=== PATIENT | female | born 1960 | race Caucasian/White ===

== ENCOUNTER → 2020-09-15 | Outpatient (CLI) | payer BC | LOC: MC.RAD 09:23 | DX: Z12.31 Encounter for screening mammogram for malignant neoplasm of breast (principal); Z98.890 Other specified postprocedural states; Z85.3 Personal history of malignant neoplasm of breast ==

== ENCOUNTER 2021-01-06 08:23 | Emergency (ER) | payer BC ==
[~2021-01-06] VITALS: Ht 152.4 cm; Wt 63.6 kg
[2021-01-06 08:28] VITALS: TEMP 98.3
[2021-01-06 08:44] LABS: COLLECTION METHOD CLEAN CATCH
[2021-01-06 08:53] LABS: PH 6 (5-8); SQUAMOUS EPITHELIAL None Seen /hpf; URINE APPEARANCE Clear; URINE BACTERIA None Seen /hpf; URINE BILIRUBIN Negative (NEGATIVE); URINE BLOOD Negative (NEGATIVE); URINE COLOR Yellow; URINE GLUCOSE Negative (NEGATIVE); URINE KETONE Negative (NEGATIVE); URINE LEUKOCYTE ESTERASE Negative (NEGATIVE); URINE NITRATE Negative (NEGATIVE); URINE PROTEIN(semi-quant) Negative (NEGATIVE); URINE RBC None Seen /hpf; URINE UROBILINOGEN Negative (NEGATIVE)
[2021-01-06 09:20] LABS: BASO % 0.5 % (0.0-2.0); EOS # 0.1 (0.0-0.7); EOS % 1.3 % (0-4.0); GRAN # 5.4 (1.4-6.5); GRAN % 84.8 % (42.2-75.2); HEMATOCRIT 43.8 % (37.0-47.0); HEMOGLOBIN 14.6 g/dl (12.5-16.0); LYMPH # 0.6 (1.2-3.4); LYMPH % 9.4 % (20.0-51.0); MEAN CELL VOLUME 91 fl (80.0-100.0); MEAN CORPUSCULAR HEMOGLOBIN 30 pg (27.0-31.0); MEAN CORPUSCULAR HGB CONC 33 g/dl (33.0-37.0); MEAN PLATELET VOLUME 9.6 fl (7.4-10.4); MONO # 0.2 (0.1-0.6); MONO % 3.8 % (1.7-9.3); PLATELET COUNT 228 K/mm3 (130-400); RED BLOOD COUNT 4.84 M/mm3 (4.10-5.30); REDCELL DISTRIBUTION WIDTH-CV 11.9 % (11.5-14.5)
[2021-01-06 09:31] LABS: ALANINE AMINOTRANSFERASE 32 U/L (4-34); ALBUMIN 4.8 gm/dL (3.5-5.0); ALKALINE PHOSPHATASE 92 U/L (50-136); ANION GAP 7 mmol/L (7-16); AST,SGOT 28 U/L (15-37); BILIRUBIN,TOTAL 0.9 mg/dL (0.0-1.0); BLOOD UREA NITROGEN 31 mg/dL (7-17); CALCIUM 10.3 mg/dL (8.4-10.2); CARBON DIOXIDE 29 mmol/L (22-30); CHLORIDE 105 mmol/L (98-107); CREATININE, serum 0.75 (0.52-1.25); GLUCOSE 152 mg/dL (74-106); LIPASE 388 U/L (23-300); POTASSIUM 4.2 mmol/L (3.4-5.0); SODIUM 141 mmol/L (137-145); TOTAL PROTEIN 8.8 gm/dL (6.4-8.2)
[2021-01-06 09:32] LABS: C-REACTIVE PROTEIN < 0.5 mg/dL (0.0-0.9)
[2021-01-06 12:10] VITALS: BP 159/70; PULSE 60
== END 2021-01-06 12:10 | disposition home or self-care (01) ==
LOC: COL.ER 08:23
PROVIDERS: Family Medicine
DX: R10.13 Epigastric pain (principal); R10.11 Right upper quadrant pain; E11.9 Type 2 diabetes mellitus without complications; Z88.1 Allergy status to other antibiotic agents; Z88.5 Allergy status to narcotic agent; Z88.8 Allergy status to other drugs, medicaments and biological substances
CPT/HCPCS: J7120; Q9967

== ENCOUNTER → 2021-08-27 | Outpatient (CLI) | payer BC | LOC: MC.RAD 10:00 | DX: N64.4 Mastodynia (principal); Z85.3 Personal history of malignant neoplasm of breast; Z98.890 Other specified postprocedural states ==

== ENCOUNTER → 2023-06-22 | Outpatient (CLI) | payer MEDICARE | LOC: MC.RAD 06-15 09:15 | DX: C50.312 Malignant neoplasm of lower-inner quadrant of left female breast (principal) ==

== ENCOUNTER → 2023-09-05 | Outpatient (CLI) | payer MEDICARE | LOC: DIA.ED 09:47 | DX: E11.9 Type 2 diabetes mellitus without complications (principal); E78.5 Hyperlipidemia, unspecified; I10 Essential (primary) hypertension | CPT/HCPCS: G0108 ==

== ENCOUNTER → 2024-03-28 | Outpatient (CLI) | payer MEDICARE ==
[~2024-03-28] MED LIST: Iohexol 300 - 100 ML VIAL IV ONE; NS 100 ML IV SCH
== END ==
LOC: COL.RAD 08:15
DX: R91.8 Other nonspecific abnormal finding of lung field (principal); R59.0 Localized enlarged lymph nodes
CPT/HCPCS: Q9967

== ENCOUNTER 2024-04-25 08:22 | Outpatient (CLI) | payer MEDICARE ==
[~2024-04-25] VITALS: Ht 152.4 cm; Wt 68.9 kg
[2024-04-25] VITALS (17 sets, daily range): BP systolic 113–146; BP diastolic 72–98; PULSE 82–108; TEMP 97.8
[2024-04-25] MEDS ORDERED: COZAAR 50MG50 MG/TAB PO (08:44)
[2024-04-25] MEDS ORDERED: ARIMIDEX1 MG PO (08:44)
[2024-04-25] MEDS ORDERED: ZETIA 10MG TAB10 MG PO (08:45)
[2024-04-25] MEDS ORDERED: WELLBUTRIN XL150 MG PO (08:45)
[2024-04-25] MEDS ORDERED: BALANCE B-1001 TA1 PO (08:46)
[2024-04-25] MEDS ORDERED: MOUNJARO5 MG/0.5 M SQ (08:46)
[2024-04-25] MEDS ORDERED: MAG-OX 400400 MG/TAB PO (08:47)
[2024-04-25] MEDS ORDERED: VITAMIND3 5000 PO (08:47)
[2024-04-25] MEDS ORDERED: FISH OIL 500 M1 EAC1 PO (08:48)
[2024-04-25] MEDS ORDERED: DIGESTIVE ADVA1 EAC1 PO (08:49)
[2024-04-25] MEDS ORDERED: VIACTIV PO (08:50)
[2024-04-25] MEDS ORDERED: MORPHINE 1515 MG/TAB PO (08:50)
--- NOTE | 2024-04-25 09:35 | NUR ---
pt to ct per ambulation. Pt positioned in prone position on ct table. O2 on at 2l/nc. Monitors applied.
--- NOTE | 2024-04-25 09:55 | NUR ---
Specimens obtained and placed in formalin by Dr Stokes. Specimen labeled.
--- NOTE | 2024-04-25 13:09 | NUR ---
Pt brought to EU9 by stretcher from radiology. Pt transferred to the EU bed. Pt was instructed to lay on right side. Band-aid assessed, clean, dry, and intact. Pt got a chest x-ray about an hour after being in the Express unit. Dr. Stokes reviewed the imaging and determined it was okay for the pt to DC. Dr. Stokes came and talked with the pt. Discharge education and inforamtion discussed with the pt. No questions at this time. Pt exited the unit by wheelchair accompanied by this nurse to friends car.
== END 2024-04-25 12:27 | disposition home or self-care (01) ==
LOC: COL.RAD 08:22
DX: R91.8 Other nonspecific abnormal finding of lung field (principal)
CPT/HCPCS: 32107

== ENCOUNTER 2024-06-16 08:22 | Inpatient (IN) | payer MEDICARE ==
[2024-06-16] VITALS (7 sets, daily range): BP systolic 127–145; BP diastolic 81–84; PULSE 96–103; TEMP 97.8–99.8
[~2024-06-16] VITALS: Ht 152.4 cm; Wt 64.0 kg
[~2024-06-16 08:22] MED LIST changes: +ARIMIDEX1 MG PO; +BALANCE B-1001 TA1 PO; +COZAAR 50MG50 MG/TAB PO; +DIGESTIVE ADVA1 EAC1 PO; +FISH OIL 500 M1 EAC1 PO; -Iohexol 300 - 100 ML VIAL IV ONE; +MAG-OX 400400 MG/TAB PO; +MORPHINE 1515 MG/TAB PO; +MOUNJARO5 MG/0.5 M SQ; -NS 100 ML IV SCH; +VALIUM 2MG T2 MG/TAB PO; +VIACTIV PO; +VITAMIND3 5000 PO; +WELLBUTRIN XL150 MG PO; +ZETIA 10MG TAB10 MG PO
[2024-06-16] MEDS ORDERED: NS 1,000 ML IV ONE (08:45)
[2024-06-16 08:53] LABS: HEMATOCRIT 39.1 % (37.0-47.0); HEMOGLOBIN 12.7 g/dl (12.5-16.0); MEAN CELL VOLUME 84 fl (80.0-100.0); MEAN CORPUSCULAR HEMOGLOBIN 27 pg (27-31); MEAN CORPUSCULAR HGB CONC 33 g/dl (33.0-37.0); MEAN PLATELET VOLUME 8.7 fl (7.4-10.4); PLATELET COUNT 378 K/mm3 (130-400); RED BLOOD COUNT 4.67 M/mm3 (4.10-5.30); REDCELL DISTRIBUTION WIDTH-CV 13.6 % (11.5-14.5)
[2024-06-16 09:30] LABS: ALBUMIN 2.5 g/dL (3.4-4.8); BILIRUBIN,TOTAL 0.7 mg/dL (0.2-1.2); C-REACTIVE PROTEIN 18.81 mg/dL (0.00-0.50); CALCIUM 9.4 mg/dL (8.4-10.2); CREATININE, serum 0.74 mg/dL (0.57-1.11); POTASSIUM 4.6 mEq/L (3.5-4.5); TOTAL PROTEIN 6.9 g/dl (6.2-8.1)
[2024-06-16 09:35] LABS: BAND 1 % (0-10); LYMPHOCYTE 11 % (20.0-51.0); NEUTROPHILS 84 % (42.0-75.2); PLATELET ESTIMATE NORMAL (NORMAL); TROPONIN-I 0.015 ng/mL (0.00-0.033)
--- NOTE | 2024-06-16 10:55 | NUR ---
IV ACCESS WAS INSUFFICIENT FOR CTA BOLUS. DISCUSSED WITH DR. APODACA, ON HOLD UNTIL FURTHER NOTICE. ROSSANA
[2024-06-16 12:06] LABS: COLLECTION METHOD CLEAN CATCH
[2024-06-16 12:32] LABS: URINE APPEARANCE CLEAR (CLEAR/HAZY); URINE BLOOD NEGATIVE (NEGATIVE); URINE COLOR YELLOW (YELLOW); URINE GLUCOSE 3+ (NEGATIVE); URINE KETONE 4+ (NEGATIVE); URINE NITRATE NEGATIVE (NEGATIVE); URINE PROTEIN(semi-quant) 1+ (NEGATIVE); URINE UROBILINOGEN 0.2 E.U/dL (0.2-1.0)
[2024-06-16] MEDS ORDERED: Ondansetron 4 MG/2 ML VIAL IV PRN (13:00)
[2024-06-16] MEDS ORDERED: Docusate Sodium 100 MG CAP PO PRN (13:00)
[2024-06-16] MEDS ORDERED: Morphine Sulfate 15 MG Immediate-Release TAB PO PRN (13:00)
[2024-06-16] MEDS ORDERED: Polyethylene Glycol 3350 17 GM PDS PO PRN (13:00)
[2024-06-16] MEDS ORDERED: Acetaminophen 325 MG TAB PO PRN (13:15)
[2024-06-16] MEDS ORDERED: Iohexol 300 - 100 ML VIAL IV ONE (13:50)
[2024-06-16] MEDS ORDERED: NS 100 ML IV SCH (13:51)
--- NOTE | 2024-06-16 14:24 | NUR ---
Patient arrived to the medical unit, room 351. Alert and oriented x 4, transfer herself from stretcher to bed. States some pain in the right neck 3/10 due to RIJ central line. State chronic pain in the back 2/10. Pt is at RA sat 90%. Assessment intake completed.
[2024-06-16] MEDS ORDERED: Dextrose 50% Water 25 GM/50 ML SYRINGE IV PRN (14:30)
[2024-06-16] MEDS ORDERED: Dextrose (Glucose) 15 GM (4 x 3.75 GM) Chewable TABLET PACK PO PRN (14:30)
[2024-06-16] MEDS ORDERED: Glucagon 1 MG VIAL IM PRN (14:30)
[2024-06-16] MEDS ORDERED: Insulin Lispro (HumaLOG) SQ SCH (17:00)
--- NOTE | 2024-06-16 18:27 | NUR ---
Patient is laying in bed, children at bedside. all needs met at this time. Report will be given to night RN.
[2024-06-16] MEDS ORDERED: Famotidine 20 MG TAB PO SCH (21:00)
[2024-06-17] VITALS (7 sets, daily range): BP systolic 102–141; BP diastolic 66–79; PULSE 98–101; TEMP 97.6–99.2
--- NOTE | 2024-06-17 07:28 | NUR ---
Bedside report received from KELLY Castillo. Pt awake in bed with no complaints. Call light within reach.
[2024-06-17 07:40] LABS: BASO % 0.4 % (0.0-2.0); EOS # 0.1 K/mm3 (0.0-0.7); EOS % 0.6 % (0.0-4.0); GRAN # 7.5 K/mm3 (1.4-6.5); GRAN % 82.7 % (42.2-75.2); HEMATOCRIT 34.6 % (37.0-47.0); HEMOGLOBIN 11.5 g/dl (12.5-16.0); LYMPH # 0.8 K/mm3 (1.2-3.4); LYMPH % 8.6 % (20.0-51.0); MEAN CELL VOLUME 82 fl (80.0-100.0); MEAN CORPUSCULAR HEMOGLOBIN 27 pg (27-31); MEAN CORPUSCULAR HGB CONC 33 g/dl (33.0-37.0); MEAN PLATELET VOLUME 8.9 fl (7.4-10.4); MONO # 0.6 K/mm3 (0.1-0.6); MONO % 6.3 % (1.7-9.3); PLATELET COUNT 355 K/mm3 (130-400); RED BLOOD COUNT 4.21 M/mm3 (4.10-5.30); REDCELL DISTRIBUTION WIDTH-CV 13.9 % (11.5-14.5)
[2024-06-17 08:07] LABS: CALCIUM 8.8 mg/dL (8.4-10.2); CREATININE, serum 0.71 mg/dL (0.57-1.11); POTASSIUM 4.2 mEq/L (3.5-4.5)
[2024-06-17 08:45] LABS: INR 1.4 (0.8-3.0); PROTHROMBIN TIME 15.5 SECONDS (9.7-12.8)
[2024-06-17] MEDS ORDERED: Magnesium Oxide 400 MG TAB PO SCH (09:00)
[2024-06-17] MEDS ORDERED: buPROPion XL (24-HR) 150 MG TAB PO SCH (09:00)
[2024-06-17] MEDS ORDERED: Losartan 50 MG TAB PO SCH (09:00)
[2024-06-17] MEDS ORDERED: Insulin Lispro (HumaLOG) SQ SCH (12:00)
--- NOTE | 2024-06-17 12:52 | NUR ---
During rounding had GOC/Palliative Care meeting with pt- Destini, daughter Zelda, son Jose, myself, VERONICA Ladd, Dr. Hauser, Gloria DUBOIS. Pt is currently DNR. Hx Stage IV Breast CA with Mets to Lung/Bone. Large Right Pleural Effusion- possible Thoracentesis. Possible Chemo. Dr. Renee reviewed pt's status and possible treatments. It was discussed to have a thoracentesis completed and then go to Hospice Care. Destini stated, "I need to talk with family. I am not ready to make the decision today." Wilberto reviewed options for Hospice. Zelda requested to have information concerning the Hospice House. Family was very interactive during the discussion and supportive of Destini making the decision. Pt was coughing through the talk but remained on RA. Will discuss decision tomorrow during rounding.
--- NOTE | 2024-06-17 13:22 | NUR ---
Initial visit; Patient thanked Brine Process Operator for stopping though she stated she will have a visit from her Head Holder this afternoon. Brine Process Operator wished her well and offered God's blessings.
[2024-06-17] MEDS ORDERED: ATIVAN 1MG T1 MG/TAB PO (14:15)
[2024-06-17] MEDS ORDERED: ZOFRAN ODT8 MG PO (14:15)
--- NOTE | 2024-06-17 14:46 | NUR ---
clay house worker attended clinical rounding and was made aware of pt needing a goals of care consult. VERONICA, Dr. Renee, and TALON Espino discussed pt's options and how she appears tired. SW confirmed pt lives alone in [place], sees Dr. Jaime for PCP needs, and obtains medications from [facility] with no difficulties. She confirmed her insurance as [employer]. She states she has needed assistance with ADLS and her daughter, Zelda [phone] has been staying with her. She uses a FWW, cane, CPAP, and shower chair for DME. She does no thave a [id number], but is agreeable to her children being NOK. TALON Espino discussed dx related to hospice vs agressive cares and potential for thoracentisis. Pt reports wanting more time to think about her options, but is open to [facility] discussing with her daughter who is a RN. VERONICA faxed referral to alicia at [facility] who will discuss with daughter. VERONICA later received a call from daughter requesting information on 24/7 care. VERONICA provided [employer] HH & hospice and local private pay agencies for 24/7 care, along with brochures. VERONICA notes Trapper with [facility] arrived to discuss options further with their agency due to receiving a referral from pt's PCP. Discharge Plan: hospice vs agressive care
--- NOTE | 2024-06-17 16:16 | NUR ---
edge worker received a call from Nick with [facility] report the family is interested in pursuing hospice. Nick is requesting a referral. VERONICA spoke with DaughterZelda to discuss if they decided. She reports they have decided on hospice at home and are discharging here soon. She reports her mother has no decided on a hospice agency at this time and will not. VERONICA provided she will ensure hospice orders are written, but she would need to follow up with a provider to arrange HH Hospice. She verbalized understanding. VERONICA spoke with KELLY Merida who was updated on the above. Discharge Plan: home
--- NOTE | 2024-06-17 16:30 | NUR ---
Discharge instructions provided to pt and pt verbalized understanding of discharge paperwork. Family at bedside during discharge instructions. RIJ discontinued by KELLY Mullins, pt tolerated. Flat time completed for thirty minutes per protocol with no complications. Pt is leaving facility back to home with family.
--- NOTE | 2024-06-17 16:35 | NUR ---
PATIENT RIJ REMOVED USIING CENTRAL LINE REMOVAL PROTOCOL. PATIENT TOLERATED WELL. PATIENT FLAT TIME UNTIL 1705. PATIENTS FAMILY AT BEDSIDE. PATIENT DENEIS ANY NEEDS OR COMPLAINTS AT THIS TIME. CALL LIGHT WITHIN REACH. FALL PRECAUTIONS IN PLACE.
== END 2024-06-17 17:15 | disposition hospice, home (50) | DRG 181 ==
LOC: COL.ER 08:22 → MEDICAL 12:59
PROVIDERS: Emergency Medicine; Physician Assistant; Surgery; ADMIT Internal Medicine
PROC: 05HM33Z Insertion of Infusion Device into Right Internal Jugular Vein, Percutaneous Approach (ICD-10-PCS; principal; 2024-06-16 12:15)
DX: C78.00 Secondary malignant neoplasm of unspecified lung (principal); C79.51 Secondary malignant neoplasm of bone; E87.1 Hypo-osmolality and hyponatremia; J91.0 Malignant pleural effusion; C50.919 Malignant neoplasm of unspecified site of unspecified female breast; E78.5 Hyperlipidemia, unspecified; E11.65 Type 2 diabetes mellitus with hyperglycemia; I10 Essential (primary) hypertension; Z90.12 Acquired absence of left breast and nipple; Z88.8 Allergy status to other drugs, medicaments and biological substances; Z88.9 Allergy status to unspecified drugs, medicaments and biological substances; Z88.6 Allergy status to analgesic agent; Z20.822 Contact with and (suspected) exposure to COVID-19; F32.A Depression, unspecified; G89.3 Neoplasm related pain (acute) (chronic); Z88.5 Allergy status to narcotic agent; Z88.2 Allergy status to sulfonamides; Z23 Encounter for immunization
CPT/HCPCS: C1751; G0378; J1650; J1815; J2405; J7030; Q9967